=== PATIENT | male | born 1935 | race Two or more races ===

== ENCOUNTER 2023-01-12 14:21 | Emergency (ER) | payer OTHER ==
[~2023-01-12] VITALS: Ht 160 cm; Wt 72.4 kg
[2023-01-12 15:43] LABS: Basophils # (auto) 0.1 10 ^3/uL (0-0.2); Basophils % (auto) 0.8 % (0.0-2.0); Eosinophils # (auto) 0.2 10 ^3/uL (0-0.8); Eosinophils % (auto) 2.8 % (0.0-7.0); Hematocrit 39.8 % (41.0-53.0); Hemoglobin 13.9 g/dL (13.5-17.5); Lymphocytes # (auto) 0.9 10 ^3/uL (0.4-5.4); Lymphocytes % (auto) 11.5 % (10.0-50.0); Mean Corpuscular Hemoglobin 30.8 pg (28.0-32.0); Mean Corpuscular Volume 87.9 fL (80.0-100.0); Monocytes % (auto) 12.8 % (0.0-12.0); Neutrophils # (auto) 5.4 10 ^3/uL (1.6-8.6); Neutrophils % (auto) 72.1 % (37.0-80.0); Nucleated Red Blood Cells % 0.1 %; Red Blood Cells 4.53 10^6/uL (4.5-5.90); Red Cell Distribution Width 14.4 % (11.8-14.3); White Blood Cell 7.5 10^3/uL (4.4-10.8)
[2023-01-12 16:00] LABS: Albumin 3.6 g/dL (3.4-5.0); BUN/Creatinine Ratio 15.7; Calcium 8.9 mg/dL (8.5-10.1); Potassium 4.4 mmol/L (3.5-5.1)
[2023-01-12 16:02] LABS: Bilirubin, Total 0.6 mg/dL (0.2-1.0); Total Protein 6.4 g/dL (6.4-8.2)
[2023-01-12] MEDS ORDERED: HEPARIN SODIUM (PORCINE) 5000 UNITS/ML 1ML VIAL IV ONE (16:15)
[2023-01-12 18:50] LABS: INR 0.99 (0.9-1.15); Partial Thromboplastin Time 29.9 sec (24.6-33.4)
[2023-01-12] MEDS ORDERED: MORPHINE SULFATE 4 MG/ML SYR/VIAL IV ONE (23:45)
[2023-01-12] MEDS ORDERED: ONDANSETRON HCL 4 MG/2 ML VIAL IV ONE (23:45)
[2023-01-13 00:16] VITALS: BP 139/56
[2023-01-13] MEDS ORDERED: HEPARIN DRIP/D5W 100UNITS/ML 250 ML IV SCH (01:00)
== END 2023-01-13 00:39 | disposition short-term general hospital (02) ==
LOC: ER 14:21
DX: I73.9 Peripheral vascular disease, unspecified (principal); I70.90 Unspecified atherosclerosis; M79.672 Pain in left foot; Z20.822 Contact with and (suspected) exposure to COVID-19
CPT/HCPCS: 36415; 73700; 80053; 82962; 84484; 85025; 85379; 85610; 85730; 87426; 93926; 96374; 96375; 99285; J1644; J2270; J2405

== ENCOUNTER 2024-05-27 17:26 | Inpatient (IN) | payer OTHER ==
[~2024-05-27] VITALS: Ht 165.1 cm; Wt 72.4 kg
[2024-05-27 18:12] LABS: Urine Bacteria None Seen /hpf (None Seen)
[2024-05-27 18:44] LABS: Urine Blood Negative /uL (Negative); Urine Clarity Clear (Clear); Urine Color Light-Yellow (Yellow); Urine Mucus FEW (None Seen); Urine Protein, UAD Negative (Negative); Urine Specific Gravity 1.015 (1.001-1.035); Urine Urobilinogen Normal (Negative); Urine WBC 4 /hpf (0 - 3)
[2024-05-27 18:57] LABS: Basophils # (auto) 0 10 ^3/uL (0-0.2); Basophils % (auto) 0.7 % (0.0-2.0); Eosinophils # (auto) 0.5 10 ^3/uL (0-0.8); Eosinophils % (auto) 7.5 % (0.0-7.0); Hematocrit 34.7 % (41.0-53.0); Hemoglobin 11.8 g/dL (13.5-17.5); Lymphocytes # (auto) 0.9 10 ^3/uL (0.4-5.4); Lymphocytes % (auto) 13.2 % (10.0-50.0); Mean Corpuscular Hemoglobin 30.6 pg (28.0-32.0); Mean Corpuscular Hgb Conc. 34.1 g/dL (32.0-36.0); Mean Corpuscular Volume 89.8 fL (80.0-100.0); Monocytes # (auto) 0.7 10 ^3/uL (0-1.3); Monocytes % (auto) 9.3 % (0.0-12.0); Neutrophils % (auto) 69.3 % (37.0-80.0); Nucleated Red Blood Cells % 0.1 %; Red Blood Cells 3.86 10^6/uL (4.5-5.90); Red Cell Distribution Width 14.6 % (11.8-14.3); White Blood Cell 7.2 10^3/uL (4.4-10.8)
[2024-05-27 19:06] LABS: Chloride 107 mmol/L (98-107); Potassium 4.1 mmol/L (3.5-5.1); Sodium 140 mmol/L (136-145)
[2024-05-27 19:07] LABS: Anion Gap 7 (5-15); Carbon Dioxide 26 mmol/L (20-30)
[2024-05-27 19:08] LABS: Calcium 9.7 mg/dL (8.7-10.4)
[2024-05-27 19:12] LABS: Glucose 118 mg/dL (74-106)
[2024-05-27 19:13] LABS: BUN/Creatinine Ratio 19.3 (10.0-20.0); Blood Urea Nitrogen 23 mg/dL (9-23)
[2024-05-27 21:00] VITALS: RESP 17; O2SAT 95
[2024-05-27] MEDS ORDERED: DEXTROSE (50%) 50ML SYRG IV PRN (21:15)
[2024-05-27] MEDS ORDERED: DOCUSATE SOD 100 MG CAP PO PRN (21:15)
[2024-05-27] MEDS ORDERED: HYDROcodone-ACET 5/325MG TAB PO PRN (21:15)
[2024-05-27] MEDS ORDERED: ONDANSETRON HCL 4 MG/2 ML VIAL IV PRN (21:15)
[2024-05-27] MEDS ORDERED: ACETAMINOPHEN 325 MG TAB PO PRN (21:15)
[2024-05-27] MEDS: SODIUM CHLORIDE 0.9% 1,000 ML IV SCH (21:39)
[2024-05-27] MEDS: ACCU-CHEK COMFORT CURVE STRIP VI SCH (21:44)
[2024-05-27] MEDS: ATORVASTATIN 20 MG TAB PO SCH (21:44)
[2024-05-27] MEDS: InsuLIN REG 1unit/0.01ml Soln (100units/ml) SC SCH (21:45)
[2024-05-27] MEDS ORDERED: MORPHINE SULFATE INJ 2 MG/ml SYRG IV PRN (23:30)
[2024-05-27] MEDS ORDERED: NITROGLYCERIN 0.4 MG SL TAB SL PRN (23:30)
[2024-05-28] VITALS (7 sets, daily range): BP systolic 145–167; BP diastolic 50–74; PULSE 60–76; RESP 14–20; TEMP 97.6–98.6; O2SAT 94–98
[2024-05-28] MEDS ORDERED: TRAZ-227 PO (01:45)
[2024-05-28] MEDS ORDERED: ATOR-507 PO (01:45)
[2024-05-28] MEDS ORDERED: GABA-1250 PO (01:45)
[2024-05-28] MEDS ORDERED: CILO100T3 PO (01:45)
[2024-05-28] MEDS ORDERED: AMOX250C3 PO (01:45)
[2024-05-28] MEDS ORDERED: TAMS-35 PO (01:45)
[2024-05-28] MEDS ORDERED: ASPI-543 PO (01:45)
[2024-05-28 07:37] LABS: Basophils # (auto) 0.1 10 ^3/uL (0-0.2); Basophils % (auto) 0.8 % (0.0-2.0); Eosinophils # (auto) 0.6 10 ^3/uL (0-0.8); Eosinophils % (auto) 9.1 % (0.0-7.0); Hematocrit 37.1 % (41.0-53.0); Hemoglobin 12.4 g/dL (13.5-17.5); Lymphocytes # (auto) 1.1 10 ^3/uL (0.4-5.4); Lymphocytes % (auto) 17.2 % (10.0-50.0); Mean Corpuscular Hemoglobin 30.3 pg (28.0-32.0); Mean Corpuscular Hgb Conc. 33.5 g/dL (32.0-36.0); Mean Corpuscular Volume 90.4 fL (80.0-100.0); Monocytes # (auto) 0.6 10 ^3/uL (0-1.3); Monocytes % (auto) 9.5 % (0.0-12.0); Neutrophils % (auto) 63.4 % (37.0-80.0); Red Cell Distribution Width 14.8 % (11.8-14.3); White Blood Cell 6.3 10^3/uL (4.4-10.8)
[2024-05-28 07:50] LABS: Alanine Aminotransferase 17 U/L (7-40); Albumin 3.9 g/dL (3.2-4.8); Alkaline Phosphatase 103 U/L (46-116); Anion Gap 5 (5-15); Aspartate Aminotransferase 10 U/L (13-40); BUN/Creatinine Ratio 14.6 (10.0-20.0); Blood Urea Nitrogen 18 mg/dL (9-23); Calcium 9.7 mg/dL (8.5-10.1); Carbon Dioxide 30 mmol/L (20-30); Chloride 110 mmol/L (98-107); Glucose 134 mg/dL (74-106); Sodium 145 mmol/L (136-145)
[2024-05-28 07:51] LABS: Bilirubin, Total 0.7 mg/dL (0.2-1.0); Total Protein 5.9 g/dL (5.7-8.2)
[2024-05-28] MEDS: hydrALAZINE HCL 20 MG/ML VL IV PRN (08:23)
[2024-05-28] MEDS: ASPirin 81 mg TAB PO SCH (08:24)
[2024-05-28] MEDS: FAMOTIDINE (10MG/ML) 2ML VL IV SCH (08:24)
== END 2024-05-28 15:00 | disposition home or self-care (01) | DRG 639 ==
LOC: ER 17:26 → TELE-WESTW 23:17 → TELE 23:17 → TELE-WESTW 23:57
PROVIDERS: ADMIT Nurse Practitioner Family; ATTEND Internal Medicine Geriatric Medicine
DX: E11.649 Type 2 diabetes mellitus with hypoglycemia without coma (principal); E78.2 Mixed hyperlipidemia; E11.51 Type 2 diabetes mellitus with diabetic peripheral angiopathy without gangrene; I10 Essential (primary) hypertension; E11.42 Type 2 diabetes mellitus with diabetic polyneuropathy; F32.A Depression, unspecified
CPT/HCPCS: 36415; 70450; 80048; 80053; 81001; 82962; 85025; 93005; G0378; J1815; J3490